=== PATIENT | female | born 1985 | race Caucasian/White ===

== ENCOUNTER 2016-09-08 18:05 | Emergency (ER) | payer MEDICAID ==
[2016-09-08] MEDS ORDERED: MUPIROCIN 2% OINTMENT 22 GM ONE (21:03)
[2016-09-08] MEDS ORDERED: SULFAMETHOXAZOLE/TRIMETHOPRIM 800-160 MG TABLET ONE (21:04)
== END 2016-09-08 21:15 | disposition home or self-care (01) ==
LOC: ER 18:05
DX: L73.9 Follicular disorder, unspecified (principal); L03.317 Cellulitis of buttock; Z72.0 Tobacco use
CPT/HCPCS: 99283

== ENCOUNTER → 2016-12-22 | Outpatient (CLI) | payer MEDICAID ==
[2016-12-22 09:29] LABS: ABSOLUTE EOSINOPHILS # (AUTO) 0.2 10^3/uL (0.0-0.6); ABSOLUTE LYMPHOCYTES (AUTO) 1.4 10^3/uL (0.5-4.7); ABSOLUTE MONOCYTES (AUTO) 0.4 10^3/uL (0.1-1.4); ABSOLUTE NEUT (AUTO) 3.3 10^3/uL (1.7-8.2); BASOPHILS % (AUTO) 0.8 % (0-2); EOSINOPHILS % (AUTO) 4.3 % (0-6); HEMATOCRIT 43.5 % (36.0-47.0); HEMOGLOBIN 14.7 g/dL (12.0-15.5); HGB HCT DIFFERENCE 0.6; LYMPHOCYTES % (AUTO) 25.7 % (13-45); MEAN CORPUSCULAR HEMOGLOBIN 31.7 pg (27.0-33.4); MEAN CORPUSCULAR HGB CONC 33.8 g/dL (32.0-36.0); MEAN CORPUSCULAR VOLUME 94 fl (80-97); MONOCYTES % (AUTO) 7.2 % (3-13); RED BLOOD COUNT 4.64 10^6/uL (3.72-5.28); WHITE BLOOD COUNT 5.4 10^3/uL (4.0-10.5)
[2016-12-22 10:00] LABS: ALANINE AMINOTRANSFERASE 31 U/L (9-52); ALBUMIN 4.4 g/dL (3.5-5.0); ALKALINE PHOSPHATASE 52 U/L (38-126); ANION GAP 13 (5-19); ASPARTATE AMINO TRANSFERASE 19 U/L (14-36); BILIRUBIN,DIRECT 0.3 mg/dL (0.0-0.4); BLOOD UREA NITROGEN 11 mg/dL (7-20); CALCIUM 9.9 mg/dL (8.4-10.2); CARBON DIOXIDE 25 mmol/L (22-30); CHLORIDE 103 mmol/L (98-107); CHOLESTEROL 213.65 mg/dL (0-200); CREATININE RESULT 0.79 mg/dL (0.52-1.25); Direct HDL 66 mg/dL (>40); GLUCOSE 89 mg/dL (75-110); POTASSIUM 4.7 mmol/L (3.6-5.0); SODIUM 141.1 mmol/L (137-145); TOTAL PROTEIN 6.7 g/dL (6.3-8.2); TRIGLYCERIDES 119 mg/dL (<150)
[2016-12-22 10:11] LABS: DIRECT LDL 102 mg/dL (<100)
[2016-12-22 10:37] LABS: ADD HIVPANEL? NO; HIV (1 AND 2) ANTIBODY NEGATIVE (NEGATIVE)
== END ==
LOC: OD 08:33
PROVIDERS: ATTEND Internal Medicine Geriatric Medicine
DX: Z00.00 Encounter for general adult medical examination without abnormal findings (principal)
CPT/HCPCS: 36415; 80053; 80061; 85025; 86701

== ENCOUNTER 2017-08-05 19:23 | Emergency (ER) | payer MEDICAID ==
--- NOTE | 2017-08-05 19:43 | ER Document Report ---
ED Medical Screen (RME) - General Chief Complaint: Nausea/Vomiting Stated Complaint: HEADACHE Time Seen by Provider: 08/05/17 19:37 Notes: 31-year-old female patient comes emergency room by EMS for headache she reports started about 2 PM and got worse. She states she has a history of the same headaches. EMS gave Toradol and Zofran. She states the headache may be a little bit better. Brief exam shows tender posterior cervical muscles, tender temporal and forehead muscles. Patient is quite anxious, she is a quite a poor historian and when asked a direct question frequently answers with the response completely unrelated to the question that was asked. TRAVEL OUTSIDE OF THE [place] IN LAST 30 DAYS: No - Related Data Allergies/Adverse Reactions: nickel [Nickel] Adverse Reaction (Verified 03/25/16 04:02) Past Medical History - Past Medical History Cardiac Medical History: Denies: Hx DVT, Hx Hypercholesterolemia, Hx Hypertension Psychiatric Medical History: Reports: Hx Anxiety Past Surgical History: Reports: Hx Section - Immunizations Hx Diphtheria, Pertussis, Tetanus Vaccination: Yes - 2010 Physical Exam - Vital signs Vitals: Temp Pulse Resp BP Pulse Ox 97.7 F 96 28 H 131/80 H 99 08/05/17 19:24 08/05/17 19:24 08/05/17 19:24 08/05/17 19:24 08/05/17 19:24 Course - Vital Signs Vital signs: Temp Pulse Resp BP Pulse Ox 97.7 F 96 28 H 131/80 H 99 08/05/17 19:24 08/05/17 19:24 08/05/17 19:24 08/05/17 19:24 08/05/17 19:24
[2017-08-05] MEDS ORDERED: DIPHENHYDRAMINE HCL 50 MG/ML VIAL IV ONE (20:30)
[2017-08-05] MEDS ORDERED: KETOROLAC TROMETHAMINE 60 MG/2 ML SDV IV ONE (20:30)
[2017-08-05] MEDS ORDERED: PROCHLORPERAZINE EDISYLATE INJ 10 MG/2 ML VIAL IV ONE (20:30)
--- NOTE | 2017-08-05 21:06 | RADIOLOGY REPORT (SQ) ---
EXAM DESCRIPTION: CT HEAD WITHOUT COMPLETED DATE/TIME: 08/05/2017 8:57 pm REASON FOR STUDY: worst CUELLAR ever COMPARISON: None. TECHNIQUE: Axial images acquired through the brain without intravenous contrast. Images reviewed wi th bone, brain and subdural windows. Images stored on PACS. All CT scanners at this facility use dose modulation, iterative reconstruction, and/or weight based d osing when appropriate to reduce radiation dose to as low as reasonably achievable (ALARA). [facility]: Dose Right [facility]: CareDose [facility]: Dose Right [facility]: Teradose 4D [facility]: [employer] RADIATION DOSE: CT Rad equipment meets quality standard of care and radiation dose reduction techniq ues were employed. CTDIvol: 53.2 mGy. DLP: 991 mGy-cm. mGy. LIMITATIONS: None. FINDINGS: VENTRICLES: Normal size and contour. CEREBRUM: No masses. No hemorrhage. No midline shift. No evidence for acute infarction. Normal gra y/white matter differentiation. No areas of low density in the white matter. CEREBELLUM: No masses. No hemorrhage. No alteration of density. No evidence for acute infarction. EXTRAAXIAL SPACES: No fluid collections. No masses. ORBITS AND GLOBE: No intra- or extraconal masses. Normal contour of globe without masses. CALVARIUM: No fracture. PARANASAL SINUSES: No fluid or mucosal thickening. SOFT TISSUES: No mass or hematoma. OTHER: No other significant finding. IMPRESSION: NORMAL BRAIN CT WITHOUT CONTRAST. EVIDENCE OF ACUTE STROKE: NO. COMMENT: Quality ID # [id number]: Final reports with documentation of one or more dose reduction techniques (e.g., Automated exposure control, adjustment of the mA and/or kV according to patient size, use of iterative reconstruction technique) TECHNICAL DOCUMENTATION: JOB ID: [id number]- All Rights Reserved Reading location - IP/workstation name: [email or web address]
[2017-08-05] MEDS ORDERED: NORMAL SALINE 1000 ML 1,000 ML IV ONE (22:04)
--- NOTE | 2017-08-05 22:17 | ER Document Report ---
ED General - General Chief Complaint: Nausea/Vomiting Stated Complaint: HEADACHE Time Seen by Provider: 08/05/17 19:37 Mode of Arrival: Medic Information source: Patient TRAVEL OUTSIDE OF THE [place] IN LAST 30 DAYS: No - HPI Patient complains to provider of: Headache with vomiting Onset: This afternoon Onset/Duration: Sudden Quality of pain: Sharp, Stabbing Severity: Severe Pain Level: 5 Context: Patient states she has had headaches in the past, but this is the worst she ever had. Associated symptoms: Headache, Nausea, Vomiting. denies: Fever Exacerbated by: Denies Relieved by: Denies Similar symptoms previously: Yes Recently seen / treated by doctor: No - Related Data Allergies/Adverse Reactions: nickel [Nickel] Adverse Reaction (Verified 03/25/16 04:02) Past Medical History - General Information source: Patient - Social History Smoking Status: Former Smoker Chew tobacco use (# tins/day): No Frequency of alcohol use: None Drug Abuse: None Lives with: Family Family History: Arthritis, DM, Hyperlipidemia, Malignancy Patient has suicidal ideation: No Patient has homicidal ideation: No Neurological Medical History: Reports: Hx Migraine Psychiatric Medical History: Reports: Hx Anxiety Past Surgical History: Reports: Hx Section - Immunizations Hx Diphtheria, Pertussis, Tetanus Vaccination: Yes - 2010 Review of Systems - Review of Systems Constitutional: No symptoms reported EENT: No symptoms reported Cardiovascular: No symptoms reported Respiratory: No symptoms reported Gastrointestinal: See HPI Genitourinary: No symptoms reported Musculoskeletal: No symptoms reported Skin: No symptoms reported Hematologic/Lymphatic: No symptoms reported Neurological/Psychological: See HPI -: Yes All other systems reviewed and negative Physical Exam - Vital signs Vitals: Temp Pulse Resp BP Pulse Ox 97.7 F 96 28 H 131/80 H 99 08/05/17 19:24 08/05/17 19:24 08/05/17 19:24 08/05/17 19:24 08/05/17 19:24 - General General appearance: Alert, Anxious In distress: Moderate Notes: Patient vomited 1 during exam. - HEENT Head: Normocephalic, Atraumatic Eyes: Normal Conjunctiva: Normal Pupils: PERRL Nasal: Normal Mucous membranes: Normal Pharynx: Normal Neck: Normal - Respiratory Respiratory status: No respiratory distress Breath sounds: Normal - Cardiovascular Rhythm: Regular Heart sounds: Normal auscultation - Abdominal Inspection: Normal Distension: No distension Bowel sounds: Normal Tenderness: Tender - epigastric area - Extremities General upper extremity: Normal inspection General lower extremity: Normal inspection - Neurological Neuro grossly intact: Yes Cognition: Normal Orientation: AAOx4 - Psychological Associated symptoms: Anxious, Tearful - Skin Skin Temperature: Warm Skin Moisture: Dry Skin Color: Normal Course - Re-evaluation Re-evalutation: 08/05/17 22:17 CAT scan normal and this was discussed with patient. Patient states headache is tolerable and is now down to a 1. Patient is sleepy from medications, but state she feels much better. 08/05/17 23:02 - Vital Signs Vital signs: Temp Pulse Resp BP Pulse Ox 97.7 F 96 28 H 131/80 H 99 08/05/17 19:24 08/05/17 19:24 08/05/17 19:24 08/05/17 19:24 08/05/17 19:24 Discharge - Discharge Clinical Impression: Headache, migraine Qualifiers: Migraine type: unspecified Status migrainosus presence: with status migrainosus Intractability: not intractable Qualified Code(s): G43.901 - Migraine, unspecified, not intractable, with status migrainosus Condition: Good Disposition: HOME, SELF-CARE Additional Instructions: continue ibuprofen and tylenol as needed zofran for nausea follow up with your PCP Tuesday for recheck return as needed Prescriptions: Ondansetron [Zofran Odt] 8 mg PO TID PRN #10 tab.rapdis PRN Reason: Referrals: AUDI SALINAS MD [Primary Care Provider] - Follow up as needed
[2017-08-06 00:34] VITALS: BP 124/64
== END 2017-08-06 00:30 | disposition home or self-care (01) ==
LOC: ER 19:23
DX: G43.901 Migraine, unspecified, not intractable, with status migrainosus (principal); R11.2 Nausea with vomiting, unspecified; Z87.891 Personal history of nicotine dependence
CPT/HCPCS: 99284; 96361; 96374; 96375; 70450; J1200; J1885; J0780; J7030

== ENCOUNTER 2019-04-23 09:54 | Emergency (ER) | payer MEDICAID ==
[2019-04-23 09:58] VITALS: BP 135/79
--- NOTE | 2019-04-23 10:35 | ER Document Report ---
ED Medical Screen (RME) - General Chief Complaint: Urinary Problem Stated Complaint: POSSIBLE UTI Time Seen by Provider: 04/23/19 10:26 Primary Care Provider: AUDI SALINAS MD [Primary Care Provider] - Follow up as needed Notes: Patient is a 33-year-old female who presents to the emergency department with a chief complaint of abdominal pain. Patient reports she developed vaginal discharge about 1 week ago. Patient reports this is green in color. Patient reports she took Monistat at that time and that the vaginal discharge has improved. Patient reports she is sexually active and not on control. Michael mitchell reports her last menstrual cycle was April 12 and there is a concern for STI. Patient reports over the past 4 days she has had an increase in right lower quadrant pain and right lower back pain. Patient reports that she feels like she cannot empty her bladder and she feels full. Patient denies fever or chills. Patient reports she is just become more uncomfortable which prompted her to come to the emergency department. TRAVEL OUTSIDE OF THE [place] IN LAST 30 DAYS: No - Related Data Allergies/Adverse Reactions: nickel [Nickel] Adverse Reaction (Verified 03/25/16 04:02) Past Medical History - Past Medical History Cardiac Medical History: Denies: Hx DVT, Hx Hypercholesterolemia, Hx Hypertension Neurological Medical History: Reports: Hx Migraine Renal/ Medical History: Denies: Hx Peritoneal Dialysis Psychiatric Medical History: Reports: Hx Anxiety Past Surgical History: Reports: Hx Section - Immunizations Hx Diphtheria, Pertussis, Tetanus Vaccination: Yes - 2010 Physical Exam - Vital signs Vitals: Temp Pulse Resp BP Pulse Ox 98.1 F 102 H 16 135/79 H 98 04/23/19 09:58 04/23/19 09:58 04/23/19 09:58 04/23/19 09:58 04/23/19 09:58 - Abdominal Inspection: Normal Distension: No distension Bowel sounds: Normal Tenderness: Tender - Generalized abdominal pain with palpation, worse in RLQ. Course - Re-evaluation Re-evalutation: 04/23/19 10:34 We will initiate basic labs, urinalysis and hCG. Patient will require a th orough abdominal examination once on a stretcher to determine specific location of her pain. I have greeted and performed a rapid initial assessment of this patient. A comprehensive ED assessment and evaluation of the patient, analysis of test results and completion of the medical decision making process will be conducted by additional ED providers. - Vital Signs Vital signs: Temp Pulse Resp BP Pulse Ox 98.1 F 102 H 16 135/79 H 98 04/23/19 09:58 04/23/19 09:58 04/23/19 09:58 04/23/19 09:58 04/23/19 09:58 Doctor's Discharge - Discharge Referrals: AUDI SALINAS MD [Primary Care Provider] - Follow up as needed
[2019-04-23 11:13] LABS: APPEARANCE,URINE SLIGHTLY-CLOUDY; BILIRUBIN,URINE NEGATIVE (NEGATIVE); COLOR,URINE YELLOW; GLUCOSE, URINE NEGATIVE (NEGATIVE); KETONES,URINE NEGATIVE (NEGATIVE); LEUKOCYTE ESTERASE,URINE MODERATE (NEGATIVE); NITRITE,URINE NEGATIVE (NEGATIVE); PROTEIN,URINE NEGATIVE (NEGATIVE); URINE SPECIFIC GRAVITY 1.017; UROBILINOGEN,URINE NEGATIVE mg/dL (<2.0)
[2019-04-23 11:43] LABS: ABSOLUTE EOSINOPHILS # (AUTO) 0.1 10^3/uL (0.0-0.6); ABSOLUTE LYMPHOCYTES (AUTO) 1.2 10^3/uL (0.5-4.7); ABSOLUTE MONOCYTES (AUTO) 0.7 10^3/uL (0.1-1.4); ABSOLUTE NEUT (AUTO) 4.5 10^3/uL (1.7-8.2); BASOPHILS % (AUTO) 0.6 % (0-2); EOSINOPHILS % (AUTO) 1.4 % (0-6); HEMATOCRIT 42.1 % (36.0-47.0); HEMOGLOBIN 14.7 g/dL (12.0-15.5); LYMPHOCYTES % (AUTO) 18.7 % (13-45); MEAN CORPUSCULAR HEMOGLOBIN 32.3 pg (27.0-33.4); MEAN CORPUSCULAR HGB CONC 34.9 g/dL (32.0-36.0); MEAN CORPUSCULAR VOLUME 93 fl (80-97); MONOCYTES % (AUTO) 10.2 % (3-13); PLATELET COUNT 215 10^3/uL (150-450); RED BLOOD COUNT 4.54 10^6/uL (3.72-5.28); RED CELL DISTRIBUTION WIDTH 12.8 % (11.5-14.0); SEGMENTED NEUTROPHILS % (AUTO) 69.1 % (42-78); TOTAL CELLS COUNTED % (AUTO) 100 %; WHITE BLOOD COUNT 6.5 10^3/uL (4.0-10.5)
[2019-04-23 12:04] LABS: ALBUMIN 4.1 g/dL (3.5-5.0); ALKALINE PHOSPHATASE 51 U/L (38-126); ANION GAP 8 (5-19); ASPARTATE AMINO TRANSFERASE 66 U/L (14-36); BILIRUBIN,DIRECT 0.2 mg/dL (0.0-0.4); BILIRUBIN,TOTAL 1.3 mg/dL (0.2-1.3); BLOOD UREA NITROGEN 11 mg/dL (7-20); CALCIUM 9.6 mg/dL (8.4-10.2); CARBON DIOXIDE 25 mmol/L (22-30); CHLORIDE 107 mmol/L (98-107); GLUCOSE 76 mg/dL (75-110); POTASSIUM 4.5 mmol/L (3.6-5.0)
--- NOTE | 2019-04-23 12:37 | ER Document Report ---
ED GI/ - General Chief Complaint: Urinary Problem Stated Complaint: POSSIBLE UTI Time Seen by Provider: 04/23/19 10:26 Primary Care Provider: [facility] [Provider Group] - Follow up in 1 week AUDI SALINAS MD [Primary Care Provider] - Follow up as needed Notes: Patient is a 33-year-old female who presents to the emergency department with a chief complaint of vaginal discharge. Patient states that she has had sex with 3 different people recently. She is concerned for possible STIs. She had some vaginal discharge and tried to use Monistat, but did not have relief of her symptoms. TRAVEL OUTSIDE OF THE [place] IN LAST 30 DAYS: No - Related Data Allergies/Adverse Reactions: nickel [Nickel] Adverse Reaction (Verified 03/25/16 04:02) Past Medical History - Social History Smoking Status: Unknown if Ever Smoked Family History: Arthritis, DM, Hyperlipidemia, Malignancy Patient has suicidal ideation: No Patient has homicidal ideation: No - Past Medical History Cardiac Medical History: Denies: Hx DVT, Hx Hypercholesterolemia, Hx Hypertension Neurological Medical History: Reports: Hx Migraine Renal/ Medical History: Denies: Hx Peritoneal Dialysis Psychiatric Medical History: Reports: Hx Anxiety Past Surgical History: Reports: Hx Section - Immunizations Hx Diphtheria, Pertussis, Tetanus Vaccination: Yes - 2010 Review of Systems - Review of Systems Notes: REVIEW OF SYSTEMS: CONSTITUTIONAL : Denies recent illness. Denies recent unintentional weight loss. Denies fever, chills, or sweats. EENT: Denies eye, ear, throat, or mouth pain, discharge, or symptoms. Denies nasal or sinus congestion. CARDIOVASCULAR: Denies chest pain. RESPIRATORY: Denies shortness of breath, cough, congestion, difficulty breathing, or wheezing. GASTROINTESTINAL: Denies nausea, vomiting, and diarrhea. Denies abdominal pain. Denies constipation. GENITOURINARY: Denies difficulty urinating, burning, blood in urine, urgency or frequency. FEMALE GENITOURINARY: See HPI. MUSCULOSKELETAL: Denies neck and back pain. Denies joint pain or swelling. SKIN: Denies rash, itchiness, or lesions HEMATOLOGIC : Denies easy bruising or bleeding. LYMPHATIC: Denies swollen, painful, enlarged glands. NEUROLOGICAL: Denies no numbness or tingling denies weakness. Denies headache. Denies altered mental status. Denies alteration in speech. PSYCHIATRIC: Denies stress, anxiety, alteration in sleep patterns, or depression. All other systems reviewed and negative. Physical Exam - Vital signs Vitals: Temp Pulse Resp BP Pulse Ox 98.1 F 102 H 16 135/79 H 98 04/23/19 09:58 04/23/19 09:58 04/23/19 09:58 04/23/19 09:58 04/23/19 09:58 - Notes Notes: PHYSICAL EXAMINATION: GENERAL: Appears well, healthy, well-nourished, no acute distress. HEAD: Normocephalic, atraumatic. EYES: PERRL, conjunctiva normal, all extraocular movements intact, sclera nonicteric ENT: Moist mucous membranes. NECK: Supple, no noticeable swelling, redness, rash. Normal range of motion. LUNGS: Equal breath sounds bilaterally and clear to auscultation. No wheezes rales or rhonchi. CARDIOVASCULAR: S1-S2, regular rate, regular rhythm. Radial pulses 2+, normal. ABDOMEN: Normoactive bowel sounds. Soft, nontender, no guarding, no rebound tenderness, and no masses palpated. EXTREMITIES: Normal strength and range of motion, no pitting or edema. No cyanosis. NEUROLOGICAL: Moves all extremities upon command. Strength 5/5 in all extremities. PSYCH: Normal mood, normal affect. SKIN: Warm, dry. No rash, lesions, ulcerations noted. Normal skin turgor. OPERATING SYSTEM DESIGNER: Green/yellow discharge noted in vagina. Cervical motion tenderness noted with mild right adnexal tenderness noted. Course - Re-evaluation Re-evalutation: 04/23/19 12:34 HUEY Darby at bedside for pelvic exam as aligning checker. Patient did have some green/yellow discharge noted. Patient had cervical motion tenderness and right adnexal tenderness noted. 04/23/19 12:55 Patient has 4+ epithelial cells and 4+ bacteria noted on her wet mount with 1+ WBCs. No trichomonas or yeast noted. She does have a little bit of as stated above, the patient will be treated for pelvic inflammatory disease. Very low suspicion for appendicitis. Follow-up precautions were given. Verbal discharge instructions were given to the patient. They verbalized understanding. They are stable for discharge. 04/23/19 16:00 Patient earlier today and gave her the results of her gonorrhea and Chlamydia tests. She is positive for chlamydia. She states that she will tell the other people she has had sex with that she tested positive for chlamydia. Patient was empirically treated here in the emergency department earlier. - Vital Signs Vital signs: Temp Pulse Resp BP Pulse Ox 98.1 F 102 H 16 135/79 H 98 04/23/19 09:58 04/23/19 09:58 04/23/19 09:58 04/23/19 09:58 04/23/19 09:58 - Laboratory Result Diagrams: 04/23/19 11:20 04/23/19 11:20 Laboratory results interpreted by me: 04/23/19 04/23/19 04/23/19 10:45 11:20 12:30 AST 66 H Ur Leukocyte Esterase MODERATE H Chlamydia DNA (PCR) DETECTED H Discharge - Discharge Clinical Impression: Pelvic inflammatory disease, Vaginal pain Condition: Stable Disposition: HOME, SELF-CARE Additional Instructions: Your are being treated for pelvic inflammatory disease. You are being started on 2 different antibiotics and you need to take these until you finish them. Please return if you have worsening pain, persistent vomiting, spike a fever greater than 101F, or have any other symptoms that are concerning to you. Please follow closely with you primary care physician or your [facility]PER at your earliest ability. Prescriptions: Doxycycline Hyclate 100 mg PO BID #28 capsule Metronidazole [Flagyl 500 mg Tablet] 500 mg PO Q6H #28 tablet Referrals: AUDI SALINSA MD [Primary Care Provider] - Follow up as needed [facility] [Provider Group] - Follow up in 1 week
[2019-04-23 12:49] LABS: BACTERIA (WET MOUNT) 4+ BACTERIA SEEN; EPITHELIALS (WET MOUNT) 4+ EPITHELIALS SEEN; RBCS (WET MOUNT) FEW RBCS SEEN; T.VAGINALIS (WET MOUNT) NO TRICHOMONAS SEEN; WBCS (WET MOUNT) 1+ WBCS SEEN; YEAST (WET MOUNT) NO YEAST SEEN
[2019-04-23] MEDS ORDERED: LIDOCAINE 1% INJ-PF (10 MG/ML) 30 ML SDV INJ ONE (12:57)
[2019-04-23] MEDS ORDERED: CEFTRIAXONE INJ 250 MG VIAL IM ONE (12:57)
[2019-04-23] MEDS ORDERED: AZITHROMYCIN 250 MG TABLET PO ONE (12:57)
[2019-04-23 14:15] LABS: CHLAM PCR DETECTED (NOT DETECT)
== END 2019-04-23 13:37 | disposition home or self-care (01) ==
LOC: ER 09:54
DX: N73.9 Female pelvic inflammatory disease, unspecified (principal); A74.9 Chlamydial infection, unspecified; R10.2 Pelvic and perineal pain
CPT/HCPCS: 99283; 96372; 36415; 87210; 83690; 85025; 81025; 80053; 81001; 87491; 87591; Q0144; J3490; J0696